=== PATIENT | female | born 1960 | race Caucasian/White ===

== ENCOUNTER 2024-07-03 14:35 | Emergency (ER) | payer BC, OTHER ==
--- OUTSIDE RECORDS SUMMARY | 2024-07-03 14:40 | XMS REPORT | Continuity of Care Document ---
Author Name Unknown Address [address] [facility] [place] [address] [facility] Address [address] [facility] [address] [place] [address] Care Team Providers Care Marking Clerk Name Role Phone CHELY VALDEZ Primary Care Physician Unavailab Chely Castellano MD Attending Clinician + [phone] CHELY VALDEZ Attending Clinician Unavailable Suresh Locke Attending Clinician [phone] Unknown, Attending Attending Clinician Unavailab SURESH Molina Attending Clinician Unavailab Chely Castellano MD Attending Clinician [phone] [facility] Attending Clinician Unavailable CLAYTON LOZOYA Attending Clinician Unavailable EbrahiClayton Obando Attending Clinician [phone] Unknown, Attending Attending Clinician Unavailab Breanne Arce Attending Clinician + [phone] TANISHA RHODES Attending Clinician Unavailab Tanisha Yip DO Attending Clinician [phone] BREANNE CHIN Attending Clinician Unavailable MELISSA HARMON Attending Clinician Unavaila ble Doctor Unassigned, [place] Attending Clinician U navailable Lab, Ang - Db Attending Clinician Unavailable EV LOWRY Attending Clinician Unavailable Ev Lowry MD Attending Clinician [phone] Melissa Harmon MDHEvelyn Attending Clinician + [phone], [facility] Attending Clinician Unavailable Annemarie Sewell Attending Clinician [phone] Team, [facility] Maintenance Attending Joyce strauss Unavailable KENNEDI THOMPSON Attending Clinician Shruti Kennedi Wade MD Attending Clinician Melissa Hoang MD Attending Clinician [phone] ANNEMARIE MCBRIDE Attending Clinician Unavailable MELISSA HOANG Attending Clinician Unavaila ble Lab, Adc Fam Pob I Attending Clinician Unavailab EV Pineda Admitting Clinician Unavailable Ev Lowry MD Admitting Clinician [phone] Payers Payer Name Policy Type Policy Number Effective Date Expirati on Date Source [facility] [id number] 2024 00:00:00 Problems Condition Name Condition Details Condition Category Status Onset Date Resolution Date Last Treatment Date Treating Clinician Comments Source Encounter for screening colonoscop y Encounter for screening colonoscop y Disease Active 05-25 00:00: 00 Overview: Formattin g of this note might be different from the original. Added automatic ally from request for surgery [id number] [facility] Allergic rhinitis Allergic rhinitis Disease Active 06-09 00:00: 00 [facility] Migraines Migraines Disease Active 11-05 00:00: 00 [facility] Overactive bladder Overactive bladder Disease Active 11-05 00:00: 00 [facility] Postmenopa usal HRT (hormone replacemen t therapy) Postmenopa usal HRT (hormone replacemen t therapy) Disease Active 11-05 00:00: 00 [facility] Colon polyps Colon polyps Disease Active [facility] Allergies, Adverse Reactions, Alerts Allergy Name Allergy Type Status Severity Reaction(s) Onset Date Inactive Date Treating Clinician Comments Source Codeine Propensi ty to adverse reaction s Active Other - See comments 11-05 00:00: 00 [facility] CODEINE DRUG INGREDI Active N/V 11-05 00:00: 00 [facility] Social History Social Habit Start Date Stop Date Quantity Comments Source ASSERTION Not [facility] Sexual orientation [facility] Alcoholic beverage intake 2023-10-07 00:00:00 2023-10-07 00:00:00 4 /d [facility] Alcohol intake 2023-02-23 00:00:00 2023-02-23 00:00:00 4 /d [facility] History of Social function 2022-07-08 00:00:00 2022-07-08 00:00:00 [facility] Exposure to SARS-CoV-2 (event) 2022-06-20 00:00:00 2022-06-30 15:38:[address] [facility] Tobacco use and exposure 2021-12-18 00:00:00 2021-12-18 00:00:00 Smokeless tobacco non-user [facility] Sex assigned at 1960 00:00:00 1960 00:00:00 [facility] Smoking Status Start Date Stop Date Source Never smoked tobacco [facility] Medications Ordered Medication Name Filled Medication Name Start Date Stop Date Current Medication? Ordering Clinician Indication Dosage Frequency Signature (SIG) Comments Components Source diclofenac 75 mg EC tablet 06-21 00:00: 00 Yes [id number] 75mg Take 1 tablet by mouth in the morning and 1 tablet in the evening. Take with meals. [facility] oxybutynin 10 mg 24 hr tablet 06-21 00:00: 00 Yes [id number] 10mg Take 1 tablet by mouth in the morning. [facility] mupirocin 2 % ointment 06-21 00:00: 00 Yes [id number] Apply to area(s) every 12 hours. [facility] CETIRIZINE 10 mg tablet 06-01 00:00: 00 Yes [id number] 10mg TAKE 1 TABLET BY MOUTH IN THE MORNING [facility] OXYBUTYNIN 10 mg 24 hr tablet 05-29 00:00: 00 06-21 00:00 :00 No [id number] TAKE 1 TABLET BY MOUTH ONCE DAILY IN THE MORNING - APPOINTMEN T REQUIRED FOR FUTURE REFILLS [facility] CETIRIZINE 10 mg tablet 1-10 00:00: 00 Yes [id number] 10mg TAKE 1 TABLET BY MOUTH IN THE MORNING [facility] OXYBUTYNIN 10 mg 24 hr tablet -10 00:00: 00 05-29 00:00 :00 No [id number] TAKE 1 TABLET BY MOUTH ONCE DAILY IN THE MORNING -APPOINTME NT REQUIRED FOR FUTURE REFILLS [facility] sumatriptan 100 mg tablet 2023-02 00:00: 00 Yes [id number] TAKE ONE TABLET BY MOUTH NEEDED FOR MIGraine, Max 1 dose per 24 hrs [facility] diclofenac 75 mg EC tablet 2023-02 00:00: 00 06-21 00:00 :00 No [id number] 75mg Take 1 tablet by mouth in the morning and 1 tablet in the evening. Take with meals. [facility] OXYBUTYNIN 10 mg 24 hr tablet 2023-02- 00:00: 00 03-03 00:00 :00 No [id number] TAKE 1 TABLET BY MOUTH ONCE DAILY IN THE MORNING . APPOINTMEN T REQUIRED FOR FUTURE REFILLS [facility] oxybutynin 10 mg 24 hr tablet 09-05 00:00: 00 Yes [id number] 10mg Take 1 tablet by mouth every morning. MUST BE SEEN FOR FURTHER REFILLS [facility] cetirizine (ALLERGY RELIEF, CETIRIZINE, ) 10 mg tablet 15 00:00: 00 03-03 00:00 :00 No [id number] 10mg Take 1 tablet by mouth in the morning. [facility] oxybutynin 10 mg 24 hr tablet 6-20 00:00: 00 09-05 00:00 :00 No [id number] 10mg Take 1 tablet by mouth every morning. MUST BE SEEN FOR FURTHER REFILLS [facility] oxybutynin 10 mg 24 hr tablet 5-31 00:00: 00 08-11 00:00 :00 No [id number] 10mg Take 1 tablet by mouth every morning. MUST BE SEEN FOR FURTHER REFILLS [facility] ALLERGY RELIEF, CETIRIZINE, 10 mg tablet 5-20 00:00: 00 09-05 00:00 :00 No [id number] Take 1 tablet by mouth once daily [facility] cephALEXin 500 mg capsule 0 4-10 00:00: 00 01-23 00:00 :00 No [id number] 500mg Take 1 capsule by mouth 4 (four) times daily. [facility] OXYBUTYNIN 10 mg 24 hr tablet 0 3-07 00:00: 00 Yes [id number] 10mg TAKE 1 TABLET BY MOUTH IN THE MORNING [facility] ALLERGY RELIEF, CETIRIZINE, 10 mg tablet 2-12 00:00: 00 07-11 00:00 :00 No [id number] Take 1 tablet by mouth once daily [facility] oxybutynin 10 mg 24 hr tablet 1-09 00:00: 00 Yes [id number] 10mg Take 1 tablet by mouth in the morning. MUST BE SEEN FOR FURTHER REFILLS! [facility] ibuprofen (IBU) tablet 600 mg 02-23 20:00: 00 02-23 20:21 :00 No 600mg 600 mg, Oral, ONCE, 1 dose, On Wed02/23/23 at 1400, SEVEN [facility] methocarbam oL (ROBAXIN) tablet 1,000 mg 02-23 20:00: 00 02-23 20:21 :00 No 1000mg 1,000 mg, Oral, ONCE, 1 dose, On Wed02/23/23 at 1400, SEVEN [facility] cyclobenzap rine 5 mg tablet 02-23 00:00: 00 Yes [id number] 5mg Take 1 tablet by mouth in the morning and 1 tablet at noon and 1 tablet in the evening. [facility] ALLERGY RELIEF, CETIRIZINE, 10 mg tablet 2022-02- 00:00: 00 04-05 00:00 :00 No [id number] Take 1 tablet by mouth once daily [facility] ALLERGY RELIEF, CETIRIZINE, 10 mg tablet - 00:00: 00 01-04 00:00 :00 No [id number] Take 1 tablet by mouth once daily [facility] semaglutide , weight loss, (WEGOVY) 0.25 mg/0.5 mL PnIj SC injection 08-14 00:00: 00 01-23 00:00 :00 No [id number] .25mg inject 0.25 mg under the skin weekly. [facility] water for irrigation irrigation solution 07-08 14:44: 00 07-08 15:34 :50 No PRN, Starting on Wed07/08/22 at 0944, Until Wed07/08/22 at 1034, Routine, Intra-op [facility] simethicone (GAS RELIEF (SIMETHICON E)) 40 mg/0.6 mL drops 07-08 14:44: 00 07-08 15:34 :50 No PRN, Starting on Wed07/08/22 at 0944, Until Wed07/08/22 at 1034, Routine, Intra-op [facility] lactated ringers IV infusion 1,000 mL 07-08 13:15: 00 07-08 13:14 :00 No 1000mL at 42 mL/hr, 1,000 mL, IV Infusion, ONCE, 1 dose, On Wed07/08/22 at 0815, Routine, DSU Pre-op [facility] estradiol (ESTRACE) 2 mg tablet 07-08 09:02: 55 07-08 00:00 :00 No 2mg Take 1 tablet by mouth in the morning. [facility] oxybutynin 10 mg 24 hr tablet 07-06 00:00: 00 03-02 00:00 :00 No [id number] 10mg Take 1 tablet by mouth in the morning. [facility] estradiol (ESTRACE) 2 mg tablet 06-30 15:37: 24 Yes 2mg Take 1 tablet by mouth in the morning. [facility] ezetimibe 10 mg tablet 4-12 00:00: 00 Yes [id number] 10mg Take 1 tablet by mouth in the morning. [facility] ALLERGY RELIEF, CETIRIZINE, 10 mg tablet 4-12 00:00: 00 09-03 00:00 :00 No [id number] Take 1 tablet by mouth once daily [facility] clobetasoL 0.05 % ointment 4-03 00:00: 00 Yes 1{appli cator} Apply 1 Applicator to area(s) as needed. [facility] cyclobenzap rine 5 mg tablet 3- 00:00: 00 07-08 00:00 :00 No [id number] 5mg Take 1 tablet by mouth at bedtime as needed for Muscle Spasms. [facility] ALLERGY RELIEF, CETIRIZINE, 10 mg tablet 1-10 00:00: 00 06-03 00:00 :00 No [id number] Take 1 tablet by mouth once daily [facility] estradiol (ESTRACE) 2 mg tablet 2021-02 0 13:25: 50 Yes 2mg Take 2 mg by mouth daily. [facility] oxybutynin 10 mg 24 hr tablet 2021-02 0-27 00:00: 00 07-06 00:00 :00 No [id number] 10mg Take 1 tablet by mouth in the morning. [facility] OXYBUTYNIN 10 mg 24 hr tablet 2021-02 0-03 00:00: 00 12-18 00:00 :00 No [id number] Take 1 tablet by mouth once daily [facility] CETIRIZINE 10 mg tablet 8-25 00:00: 00 03-03 00:00 :00 No [id number] Take 1 tablet by mouth once daily [facility] FLUTICASONE PROPIONATE 50 mcg/actuati on nasal spray 7-25 00:00: 00 Yes [id number] Use 2 spray(s) in each nostril once daily [facility] OXYBUTYNIN 10 mg 24 hr tablet 09-01 00:00: 00 11-24 00:00 :00 No [id number] Take 1 tablet by mouth once daily [facility] CETIRIZINE 10 mg tablet 09-01 00:00: 00 10-16 00:00 :00 No [id number] Take 1 tablet by mouth once daily [facility] estradiol (ESTRACE) 2 mg tablet 08-16 09:31: 27 Yes 2mg Take 2 mg by mouth daily. [facility] sumatriptan 100 mg tablet 08-16 00:00: 00 01-23 00:00 :00 No [id number] TAKE ONE TABLET BY MOUTH NEEDED FOR MIGraine, Max 1 dose per 24 hrs [facility] fluticasone propionate 50 mcg/actuati on nasal spray 08-16 00:00: 00 09-15 00:00 :00 No [id number] 2{spray } Use 2 Sprays in each nostril daily. [facility] oxybutynin 10 mg 24 hr tablet 08-16 00:00: 00 09-01 00:00 :00 No [id number] 10mg Take 1 tablet by mouth daily. [facility] cetirizine 10 mg tablet 08-16 00:00: 00 09-01 00:00 :00 No [id number] 10mg Take 1 tablet by mouth daily. [facility] Immunizations Ordered Immunization Name Filled Immunization Name Date Status Comments Source TD, NOS 2023-10-07 10:40:[address] [facility] Zoster Vaccine Recombinant 2023-10-07 10:40:[address] [facility] TD, NOS 2023-07-10 00:00:[address] [facility] Zoster Vaccine Recombinant 2023-07-10 00:00:[address] [facility] TD, NOS 2023-06-03 00:00:[address] [facility] Zoster Vaccine Recombinant 2023-06-03 00:00:[address] [facility] TD, NOS 2023-06-02 18:40:[address] [facility] Zoster Vaccine Recombinant 2023-06-02 18:40:[address] [facility] TD, NOS 2023-06-02 00:00:[address] [facility] Zoster Vaccine Recombinant 2023-06-02 00:00:[address] [facility] TD, NOS 2023-04-30 00:00:[address] [facility] Zoster Vaccine Recombinant 2023-04-30 00:00:[address] [facility] TD, NOS 2023-04-29 00:00:[address] [facility] Zoster Vaccine Recombinant 2023-04-29 00:00:[address] [facility] TD, NOS 2023-04-20 00:00:[address] [facility] Zoster Vaccine Recombinant 2023-04-20 00:00:[address] [facility] TD, NOS 2023-04-04 00:00:[address] [facility] Zoster Vaccine Recombinant 2023-04-04 00:00:[address] [facility] TD, NOS 2023-03-02 00:00:[address] [facility] Zoster Vaccine Recombinant 2023-03-02 00:00:[address] [facility] TD, NOS 2023-02-23 13:08:[address] [facility] Zoster Vaccine Recombinant 2023-02-23 13:08:[address] [facility] TD, NOS 2023-01-02 00:00:[address] [facility] Zoster Vaccine Recombinant 2023-01-02 00:00:[address] [facility] TD, NOS 2021-12-22 00:00:[address] [facility] Zoster Vaccine Recombinant 2021-12-22 00:00:[address] [facility] TD, NOS 2021-03-17 00:00:[address] [facility] Zoster Vaccine Recombinant 2021-03-17 00:00:[address] [facility] TD, NOS 2021-03-17 00:00:[address] [facility] Zoster Vaccine Recombinant 2021-03-17 00:00:[address] [facility] TD, NOS 2021-03-03 00:00:[address] [facility] Zoster Vaccine Recombinant 2021-03-03 00:00:[address] [facility] TD, NOS 2021-02-28 00:00:[address] [facility] Zoster Vaccine Recombinant 2021-02-28 00:00:[address] [facility] Zoster Vaccine Recombinant 2020-10-30 00:00:00 Completed Zoster Vaccine Recombinant 2020-10-30 00:00:[address] [facility] Zoster Vaccine Recombinant 2020-10-30 00:00:[address] [facility] Zoster Vaccine Recombinant 2020-10-30 00:00:[address] [facility] Zoster Vaccine Recombinant 2020-10-30 00:00:[address] [facility] Zoster Vaccine Recombinant 2020-10-30 00:00:[address] [facility] Zoster Vaccine Recombinant 2020-10-30 00:00:[address] [facility] Zoster Vaccine Recombinant 2020-10-30 00:00:[address] [facility] Zoster Vaccine Recombinant 2020-10-30 00:00:[address] [facility] Zoster Vaccine Recombinant 2020-10-30 00:00:[address] [facility] Zoster Vaccine Recombinant 2020-10-30 00:00:[address] [facility] Zoster Vaccine Recombinant 2020-10-30 00:00:[address] [facility] Zoster Vaccine Recombinant 2020-10-30 00:00:[address] [facility] Zoster Vaccine Recombinant 2020-10-30 00:00:[address] [facility] Zoster Vaccine Recombinant 2020-10-30 00:00:[address] [facility] Zoster Vaccine Recombinant 2020-10-30 00:00:[address] [facility] Zoster Vaccine Recombinant 2020-10-30 00:00:[address] [facility] Zoster Vaccine Recombinant 2020-10-30 00:00:[address] [facility] Zoster Vaccine Recombinant 2020-10-30 00:00:[address] [facility] Zoster Vaccine Recombinant 2020-10-30 00:00:[address] [facility] Zoster Vaccine Recombinant 2020-10-30 00:00:[address] [facility] Zoster Vaccine Recombinant 2020-10-30 00:00:[address] [facility] Zoster Vaccine Recombinant 2020-10-30 00:00:[address] [facility] Zoster Vaccine Recombinant 2020-10-30 00:00:[address] [facility] Zoster Vaccine Recombinant 2020-10-30 00:00:[address] [facility] Zoster Vaccine Recombinant 2020-08-28 00:00:[address] [facility] Zoster Vaccine Recombinant 2020-08-28 00:00:[address] [facility] Zoster Vaccine Recombinant 2020-08-28 00:00:[address] [facility] Zoster Vaccine Recombinant 2020-08-28 00:00:[address] [facility] Zoster Vaccine Recombinant 2020-08-28 00:00:[address] [facility] Zoster Vaccine Recombinant 2020-08-28 00:00:[address] [facility] Zoster Vaccine Recombinant 2020-08-28 00:00:[address] [facility] Zoster Vaccine Recombinant 2020-08-28 00:00:[address] [facility] Zoster Vaccine Recombinant 2020-08-28 00:00:[address] [facility] Zoster Vaccine Recombinant 2020-08-28 00:00:[address] [facility] Zoster Vaccine Recombinant 2020-08-28 00:00:[address] [facility] Zoster Vaccine Recombinant 2020-08-28 00:00:[address] [facility] Zoster Vaccine Recombinant 2020-08-28 00:00:[address] [facility] Zoster Vaccine Recombinant 2020-08-28 00:00:[address] [facility] Zoster Vaccine Recombinant 2020-08-28 00:00:[address] [facility] Zoster Vaccine Recombinant 2020-08-28 00:00:[address] [facility] Zoster Vaccine Recombinant 2020-08-28 00:00:[address] [facility] Zoster Vaccine Recombinant 2020-08-28 00:00:[address] [facility] Zoster Vaccine Recombinant 2020-08-28 00:00:[address] [facility] Zoster Vaccine Recombinant 2020-08-28 00:00:[address] [facility] Zoster Vaccine Recombinant 2020-08-28 00:00:[address] [facility] Zoster Vaccine Recombinant 2020-08-28 00:00:[address] [facility] Zoster Vaccine Recombinant 2020-08-28 00:00:[address] [facility] Zoster Vaccine Recombinant 2020-08-28 00:00:[address] [facility] TD, NOS 2020-08-19 00:00:[address] [facility] TD, NOS 2020-08-17 00:00:[address] [facility] Td 2012-02-23 00:00:[address] [facility] Td 2012-02-23 00:00:[address] [facility] Td 2012-02-23 00:00:[address] [facility] Td 2012-02-23 00:00:[address] [facility] Td 2012-02-23 00:00:[address] [facility] Td 2012-02-23 00:00:[address] [facility] Td 2012-02-23 00:00:[address] [facility] TD, NOS 2012-02-23 00:00:[address] [facility] TD, NOS 2012-02-23 00:00:[address] [facility] TD, NOS 2012-02-23 00:00:[address] [facility] TD, NOS 2012-02-23 00:00:[address] [facility] TD, NOS 2012-02-23 00:00:[address] [facility] TD, NOS 2012-02-23 00:00:[address] [facility] TD, NOS 2012-02-23 00:00:[address] [facility] TD, NOS 2012-02-23 00:00:[address] [facility] TD, NOS 2012-02-23 00:00:[address] [facility] TD, NOS 2012-02-23 00:00:[address] [facility] TD, NOS 2012-02-23 00:00:[address] [facility] TD, NOS 2012-02-23 00:00:[address] [facility] TD, NOS 2012-02-23 00:00:[address] [facility] TD, NOS 2012-02-23 00:00:[address] [facility] TD, NOS 2012-02-23 00:00:[address] [facility] TD, NOS 2012-02-23 00:00:[address] [facility] TD, NOS 2012-02-23 00:00:[address] [facility] TD, NOS 2012-02-23 00:00:[address] [facility] TD, NOS 2012-02-23 00:00:[address] [facility] TD, NOS 2012-02-23 00:00:[address] [facility] TD, NOS 2012-02-23 00:00:[address] [facility] TD, NOS 2012-02-23 00:00:[address] [facility] TD, NOS 2012-02-23 00:00:[address] [facility] TD, NOS 2012-02-23 00:00:[address] [facility] TD, NOS 2012-02-23 00:00:[address] [facility] Vital Signs Vital Name Observation Time Observation Value Comments S ource Systolic blood pressure 2024-06-21 18:17:00 135 mm[Hg] [facility] Diastolic blood pressure 2024-06-21 18:17:00 70 mm[Hg] [facility] Heart rate 2024-06-21 18:17:00 53 /min [facility] Body height 2024-06-21 18:17:00 162.6 cm [facility] Body weight 2024-06-21 18:17:00 79.788 kg [facility] BMI 2024-06-21 18:17:00 30.19 kg/m2 [facility] Oxygen saturation in Arterial blood by Pulse oximetry 2024-06-21 18:17:00 97 /min [facility] Systolic blood pressure 2024-01-24 18:50:00 135 mm[Hg] [facility] Diastolic blood pressure 2024-01-24 18:50:00 81 mm[Hg] [facility] Heart rate 2024-01-24 18:50:00 55 /min [facility] Body height 2024-01-24 18:50:00 162.6 cm [facility] Body weight 2024-01-24 18:50:00 78.2 kg [facility] BMI 2024-01-24 18:50:00 29.59 kg/m2 [facility] Oxygen saturation in Arterial blood by Pulse oximetry 2024-01-24 18:50:00 98 /min [facility] Systolic blood pressure 2023-10-07 15:57:00 130 mm[Hg] [facility] Diastolic blood pressure 2023-10-07 15:57:00 79 mm[Hg] [facility] Heart rate 2023-10-07 15:56:00 61 /min [facility] Body temperature 2023-10-07 15:56:[address] [facility] Respiratory rate 2023-10-07 15:56:00 14 /min [facility] Body height 2023-10-07 15:56:00 165.1 cm [facility] 2023-10-07 15:56:00 71.94 kg [facility] BMI 2023-10-07 15:56:00 26.39 kg/m2 [facility] Oxygen saturation in Arterial blood by Pulse oximetry 2023-10-07 15:56:00 96 /min [facility] Systolic blood pressure 2023-09-06 19:23:00 139 mm[Hg] [facility] Diastolic blood pressure 2023-09-06 19:23:00 76 mm[Hg] [facility] Heart rate 2023-09-06 19:23:00 55 /min [facility] Body height 2023-09-06 19:23:00 162.6 cm [facility] Body weight 2023-09-06 19:23:00 73.256 kg [facility] BMI 2023-09-06 19:23:00 27.72 kg/m2 [facility] Oxygen saturation in Arterial blood by Pulse oximetry 2023-09-06 19:23:00 98 /min [facility] Systolic blood pressure 2023-06-02 23:55:00 131 mm[Hg] [facility] Diastolic blood pressure 2023-06-02 23:55:00 88 mm[Hg] [facility] Heart rate 2023-06-02 23:54:00 74 /min [facility] Body temperature 2023-06-02 23:54:[address] [facility] Respiratory rate 2023-06-02 23:54:00 16 /min [facility] Body weight 2023-06-02 23:54:00 72.576 kg [facility] BMI 2023-06-02 23:54:00 27.46 kg/m2 [facility] Oxygen saturation in Arterial blood by Pulse oximetry 2023-06-02 23:54:00 100 /min [facility] Systolic blood pressure 2023-02-23 20:25:00 144 mm[Hg] [facility] Diastolic blood pressure 2023-02-23 20:25:00 78 mm[Hg] [facility] Heart rate 2023-02-23 20:25:00 79 /min [facility] Respiratory rate 2023-02-23 20:25:00 18 /min [facility] Oxygen saturation in Arterial blood by Pulse oximetry 2023-02-23 20:25:00 99 /min [facility] Body temperature 2023-02-23 19:07:[address] [facility] Body height 2023-02-23 19:07:00 162.6 cm [facility] Body weight 2023-02-23 19:07:00 72.122 kg [facility] BMI 2023-02-23 19:07:00 27.29 kg/m2 [facility] Systolic blood pressure 2022-08-14 20:32:00 128 mm[Hg] [facility] Diastolic blood pressure 2022-08-14 20:32:00 78 mm[Hg] [facility] Heart rate 2022-08-14 20:32:00 62 /min [facility] Body height 2022-08-14 20:32:00 162.6 cm [facility] Body weight 2022-08-14 20:32:00 81.194 kg [facility] BMI 2022-08-14 20:32:00 30.73 kg/m2 [facility] Oxygen saturation in Arterial blood by Pulse oximetry 2022-08-14 20:32:00 95 /min [facility] Oxygen saturation in Arterial blood by Pulse oximetry 2022-07-08 15:55:00 100 /min [facility] Systolic blood pressure 2022-07-08 15:52:00 136 mm[Hg] [facility] Diastolic blood pressure 2022-07-08 15:52:00 65 mm[Hg] [facility] Respiratory rate 2022-07-08 15:52:00 16 /min [facility] Heart rate 2022-07-08 15:35:00 66 /min [facility] Body temperature 2022-07-08 15:24:[address] [facility] Body height 2022-06-30 20:00:00 162.6 cm [facility] Body weight 2022-06-30 20:00:00 78.019 kg [facility] BMI 2022-06-30 20:00:00 29.52 kg/m2 [facility] Systolic blood pressure 2022-07-08 13:12:00 120 mm[Hg] [facility] Diastolic blood pressure 2022-07-08 13:12:00 64 mm[Hg] [facility] Heart rate 2022-07-08 13:12:00 56 /min [facility] Body temperature 2022-07-08 13:12:[address] [facility] Respiratory rate 2022-07-08 13:12:00 17 /min [facility] Oxygen saturation in Arterial blood by Pulse oximetry 2022-07-08 13:12:00 95 /min [facility] Body height 2022-06-30 20:00:00 162.6 cm [facility] Body weight 2022-06-30 20:00:00 78.019 kg [facility] BMI 2022-06-30 20:00:00 29.52 kg/m2 [facility] Systolic blood pressure 2022-04-24 17:12:00 127 mm[Hg] [facility] Diastolic blood pressure 2022-04-24 17:12:00 89 mm[Hg] [facility] Heart rate 2022-04-24 17:12:00 65 /min [facility] Body height 2022-04-24 17:06:00 162.6 cm [facility] Body weight 2022-04-24 17:06:00 79.697 kg [facility] BMI 2022-04-24 17:06:00 30.16 kg/m2 [facility] Oxygen saturation in Arterial blood by Pulse oximetry 2022-04-24 17:06:00 96 /min [facility] Systolic blood pressure 2022-04-22 19:57:00 135 mm[Hg] [facility] Diastolic blood pressure 2022-04-22 19:57:00 68 mm[Hg] [facility] Heart rate 2022-04-22 19:56:00 74 /min [facility] Body temperature 2022-04-22 19:56:[address] [facility] Respiratory rate 2022-04-22 19:56:00 18 /min [facility] Body height 2022-04-22 19:56:00 162.6 cm [facility] Body weight 2022-04-22 19:56:00 80.786 kg [facility] BMI 2022-04-22 19:56:00 30.57 kg/m2 [facility] Oxygen saturation in Arterial blood by Pulse oximetry 2022-04-22 19:56:00 98 /min [facility] Systolic blood pressure 2021-12-18 18:23:00 131 mm[Hg] [facility] Diastolic blood pressure 2021-12-18 18:23:00 75 mm[Hg] [facility] Heart rate 2021-12-18 18:23:00 62 /min [facility] Body temperature 2021-12-18 18:23:[address] [facility] Body height 2021-12-18 18:23:00 162.6 cm [facility] Body weight 2021-12-18 18:23:00 78.019 kg [facility] BMI 2021-12-18 18:23:00 29.52 kg/m2 [facility] Oxygen saturation in Arterial blood by Pulse oximetry 2021-12-18 18:23:00 97 /min [facility] Systolic blood pressure 2021-02-26 20:40:00 116 mm[Hg] [facility] Diastolic blood pressure 2021-02-26 20:40:00 75 mm[Hg] [facility] Heart rate 2021-02-26 20:35:00 69 /[facility] Body [facility] 2021-02-26 20:35:[address] [facility] Body height 2021-02-26 20:35:00 162.6 cm [facility] Body weight 2021-02-26 20:35:00 73.256 kg [facility] BMI 2021-02-26 20:35:00 27.72 kg/m2 [facility] Oxygen saturation in Arterial blood by Pulse oximetry 2021-02-26 20:35:00 96 /min [facility] Procedures Procedure Date / Time Performed Performing Clinician Source POCT URINALYSIS 2023-10-07 15:54:[address] [facility] CONSENT/REFUSAL FOR DIAGNOSIS AND TREATMENT 2023-02-23 18:59:04 Doctor Unassigned, [place] [facility] INSURANCE CORRESPONDENCE 2022-09-14 05:01:00 Doc josé Unassigned, [place] [facility] INSURANCE CORRESPONDENCE 2022-08-18 05:01:00 Doc josé Unassigned, [place] [facility] COLONOSCOPY 2022-07-08 14:27:00 Ev Lowry [facility] COLONOSCOPY (ENDO) 2022-07-08 12:44:[address] [facility] COLONOSCOPY (ENDO) 2022-07-08 12:44:[address] [facility] DAY SURGERY - ADC 2022-07-08 05:01:00 Doctor Shruti ssigned, [place] [facility] INSURANCE CORRESPONDENCE 2022-05-14 05:01:00 Marc kumar Unassigned, [place] [facility] HB ECG ROUTINE & RHYTHM STRIP 2022-04-24 17:09:[address] [facility] CONSENT/REFUSAL FOR DIAGNOSIS AND TREATMENT 2022-04-24 16:36:13 Doctor Unassigned, [place] [facility] ASSIGNMENT OF BENEFITS 2022-04-24 16:35:56 Docto r Unassigned, [place] [facility] VITAMIN B12, LEVEL 2021-02-26 21:22:[address] [facility] FOLATE 2021-02-26 21:22:00 Annemarie Mcbride [facility] THYROID STIMULATING HORMONE 2021-02-26 21:22:[address] [facility] COMP. METABOLIC PANEL (01144) 2021-02-26 21:22:[address] [facility] LIPID PANEL (79063)(TOTAL CHOLESTEROL, TRIGLYCERIDES, HDL) 2021-02-26 21:22:[address] [facility] CBC WITH DIFF 2021-02-26 21:22:00 Annemarie Mcbride [facility] GLYCOSYLATED HEMOGLOBIN (A1C) 2021-02-26 21:22:[address] [facility] VITAMIN D, 25-OH 2021-02-26 21:22:[address] [facility] Encounters Start Date/Time End Date/Time Encounter Type Admission Type Attending Clinicians Care Facility Care Department Encounter ID Source 2024-06-21 13:15:00 2024-06-21 13:30:00 [facility] 1.2.840.114 350.1.13.10 4.2.7.2.686 [id number] [facility] 2024-06-21 13:15:00 2024-06-21 13:15:00 Outpatient R CHELY VALDEZ [facility] [id number] [facility] 2024-05-28 00:00:00 2024-05-29 16:20:03 Refill Valdez, Chely [facility] 1.84.114 350.1.13.10 4.2.7.2.686 [id number] [facility] 2024-05-24 00:00:00 2024-05-24 07:58:20 Refill Chely Valdez [facility] 1.2840.114 350.1.13.10 4.2.7.2.686 [id number] [facility] 2024-04-19 00:00:00 2024-04-20 08:58:47 Refill [facility] 1.84.114 350.1.13.10 4.2.7.2.686 [id number] [id number] [facility] 2024-03-02 00:00:00 2024-03-03 08:01:56 Refill Chely Valdez [facility] 1.84.114 350.1.13.10 4.2.7.2.686 [id number] [facility] 2024-01-24 12:45:00 2024-01-24 13:00:00 Office Visit Che[facility] Valdez [facility] 1.284.114 350.1.13.10 4.2.7.2.686 [id number] [facility] 2024-01-24 12:45:00 2024-01-24 12:45:00 Outpatient R JOSÉ MIGUEL CHELY [facility] [id number] [facility] 2023-10-07 10:40:00 2023-10-07 11:00:00 Urgent Care Suresh Ramirez, Attending [facility] [place] 1.284.114 350.1.13.10 4.2.7.2.686 [id number] [facility] 2023-10-07 10:40:00 2023-10-07 10:40:00 Outpatient R SURESH RAMIREZ [facility] [id number] [facility] 2023-09-06 14:30:00 2023-09-06 14:45:00 [facility] 1.840.114 350.1.13.10 4.2.7.2.686 [id number] [facility] 2023-09-06 14:30:00 2023-09-06 14:30:00 Outpatient R JOSÉ MIGUEL [facility] [id number] [facility] 2023-08-16 12:30:00 2023-08-16 12:30:00 Outpatient R CHELY VALDEZ [facility] [id number] [facility] 2023-08-12 00:00:00 2023-08-12 00:00:00 Telephone [facility] 1.84.114 350.1.13.10 4.2.7.2.686 [id number] [facility] 2023-07-10 00:00:00 2023-07-12 09:09:00 Refill José Miguel [facility] [place] 1.840.114 350.1.13.10 4.2.7.2.686 [id number] [facility] 2023-06-03 00:00:00 2023-06-03 00:00:00 Telephone Provider, Sekou [facility] 1.840.114 350.1.13.10 4.2.7.2.686 [id number] [facility] 2023-06-02 18:40:00 2023-06-02 19:11:35 Outpatient R CLAYTON LOZOYA [facility] [id number] [facility] 2023-06-02 18:40:00 2023-06-02 19:11:35 Urgent Care Clayton Lozoya Unknown, Attending [facility] 1.2.840.114 350.1.13.10 4.2.7.2.686 [id number] [facility] 2023-06-02 00:00:00 2023-06-02 00:00:00 Telephone Joao Lozoyawilma [facility] [place] 1.2.840.114 350.1.13.10 4.2.7.2.686 [id number] [facility] 2023-04-30 00:00:00 2023-04-30 00:00:00 Telephone Breanne Chin [facility] [place] 1..840.114 350.1.13.10 4.2.7.2.686 [id number] [facility] 2023-04-29 00:00:00 2023-04-29 00:00:00 Refill Chely Valdez [facility] [place] 1.2840.114 350.1.13.10 4.2.7.2.686 [id number] [facility] 2023-04-20 00:00:00 2023-04-20 00:00:00 [facility] [place] 1.2.840.114 350.1.13.10 4.2.7.2.686 [id number] [facility] 2023-04-04 00:00:00 2023-04-04 00:00:00 Refill [facility] 1.840.114 350.1.13.10 4.2.7.2.686 [id number] [facility] 2023-03-02 00:00:00 2023-03-02 00:00:00 Refill [facility] 1.84.114 350.1.13.10 4.2.7.2.686 [id number] [facility] 2023-02-23 13:08:00 2023-02-23 14:26:00 Emergency X TANISHA RHODES [facility] [id number] [facility] 2023-02-23 13:08:00 2023-02-23 14:26:00 Emergency Tanisha [facility] 1.840.114 350.1.13.10 4.2.7.2.686 [id number] [facility] 2023-01-02 00:00:00 2023-01-02 00:00:00 Refill [facility] 1.284.114 350.1.13.10 4.2.7.2.686 [id number] [facility] 2022-09-22 15:30:00 2022-09-22 15:30:00 Outpatient BREANNE WILLIS [facility] [id number] [facility] 2022-09-14 00:00:00 2022-09-14 00:00:00 Orders Only Doctor Unassigned, [place] [facility] 1.2840.114 350.1.13.10 4.2.7.2.686 [id number] [facility] 2022-09-07 00:00:00 2022-09-07 00:00:00 Refill José Miguel [facility] [place] 1.2.840.114 350.1.13.10 4.2.7.2.686 [id number] [facility] 2022-09-05 00:00:00 2022-09-05 00:00:00 Refill Chely Valdez [facility] [place]?[facility] 1.2.840.114 350.1.13.10 4.2.7.2.686 [id number] [facility] 2022-09-03 00:00:00 2022-09-03 00:00:00 Refill José Miguel [facility] [place] 1.2840.114 350.1.13.10 4.2.7.2.686 [id number] [id number] [facility] 2022-08-18 00:00:00 2022-08-18 00:00:00 Telephone GiuseppeDaianaFormerly [facility] [place]?[facility] 1.2840.114 350.1.13.10 4.2.7.2.686 [id number] [facility] 2022-08-18 00:00:00 2022-08-18 00:00:00 Orders Only Doctor Unassigned, [place] [facility] 1.2.840.114 350.1.13.10 4.2.7.2.686 [id number] [facility] 2022-08-14 16:15:00 2022-08-14 16:27:04 Painter And Decorator Visit Lab, Sekou WoodardDaiana dardenFormerly [facility] [place]?[facility] 1.2840.114 350.1.13.10 4.2.7.2.686 [id number] [facility] 2022-08-14 15:30:00 2022-08-14 16:16:12 Outpatient R BREANNE CHIN [facility] [id number] [facility] 2022-08-14 15:30:00 2022-08-14 16:16:12 Office Visit Daiana ChinFormerly [facility] [place] 1.2.840.114 350.1.13.10 4.2.7.2.686 [id number] [id number] [facility] 2022-08-13 00:00:00 2022-08-13 00:00:00 Patient Secure Msg Doctor Unassigned, [place] [facility] 1.284.114 350.1.13.10 4.2.7.2.686 [id number] [facility] 2022-07-08 08:06:00 2022-07-08 11:50:00 Outpatient R EV LOWRY [facility] [id number] [facility] 2022-07-08 08:06:00 2022-07-08 11:50:00 Hospital Encounter Essence Ev [facility] 1.284.114 350.1.13.10 4.2.7.2.686 [id number] [facility] 2022-07-08 08:50:00 2022-07-08 09:55:00 Surgery Essence Ev [facility] 1.2.840.114 350.1.13.10 4.2.7.2.686 [id number] [facility] 2022-07-08 00:00:00 2022-07-08 00:00:00 Orders Only Doctor Unassigned, [place] [facility] 1.2.840.114 350.1.13.10 4.2.7.2.686 [id number] [facility] 2022 00:00:00 2022 00:00:00 Telephone Chely Valdez [facility] [place] 1.2.840.114 350.1.13.10 4.2.7.2.686 [id number] [facility] 2022-06-23 00:00:00 2022-06-23 00:00:00 Patient Secure MsMelissa Casas KEvelynHEvelyn [facility] 1.84.114 350.1.13.10 4.2.7.2.686 [id number] [facility] 2022-06-03 00:00:00 2022-06-03 00:00:00 Telephone Melissa Harmon [facility] 1.840.114 350.1.13.10 4.2.7.2.686 [id number] [facility] 2022-06-01 10:00:00 2022-06-01 23:59:00 Outpatient R MELISSA HARMON [facility] [id number] [facility] 2022-06-01 11:30:00 2022-06-01 11:30:00 Painter And Decorator Visit 2, Adc Lab Melissa HarmonHEvelyn [facility] 1..840.114 350.1.13.10 4.2.7.2.686 [id number] [facility] 2022-06-01 00:00:00 2022-06-01 00:00:00 Refill [facility] 1.2.840.114 350.1.13.10 4.2.7.2.686 [id number] [facility] 2022-05-19 00:00:00 2022-05-19 00:00:00 Patient Secure Msg Chely [facility] 1.2840.114 350.1.13.10 4.2.7.2.686 [id number] [facility] 2022-05-14 00:00:00 2022-05-14 00:00:00 Orders Only Doctor Unassigned, [place] [facility] 1.2.840.114 350.1.13.10 4.2.7.2.686 [id number] [facility] 2022-05-14 00:00:00 2022-05-14 00:00:00 Telephone Team, [facility] 1.2840.114 350.1.13.10 4.2.7.2.686 [id number] [facility] 2022-04-27 00:00:00 2022-04-27 00:00:00 Telephone Melissa Harmon [facility] 1.2840.114 350.1.13.10 4.2.7.2.686 [id number] [facility] 2022-04-24 10:30:00 2022-04-24 11:41:49 Outpatient R MELISSA HARMON [facility] [id number] [facility] 2022-04-24 10:30:00 2022-04-24 11:41:49 Office Visit Melissa Harmon [facility] 1.2840.114 350.1.13.10 4.2.7.2.686 [id number] [facility] 2022-04-24 00:00:00 2022-04-24 00:00:00 Orders Only Doctor Unassigned, [place] [facility] 1.2.840.114 350.1.13.10 4.2.7.2.686 [id number] [facility] 2022-04-22 13:45:00 2022-04-22 14:18:14 Outpatient R KENNEDI THOMPSON [facility] [id number] [facility] 2022-04-22 13:45:00 2022-04-22 14:18:14 Office Visit Kennedi Thompson [facility] [place] 1.840114 350.1.13.10 4.2.7.2.686 [id number] [facility] 2022-02-26 00:00:00 2022-02-26 00:00:00 Refill Annemarie Mcbride A [facility] [place] 1.84114 350.1.13.10 4.2.7.2.686 [id number] [facility] 2021-12-22 00:00:00 2021-12-22 00:00:00 Patient Secure Msg Doctor Unassigned, [place] [facility] 1.114 350.1.13.10 4.2.7.2.686 [id number] [facility] 2021-12-18 13:15:00 2021-12-18 13:30:00 Office Visit Chely Valdez [facility] [place] 1.84114 350.1.13.10 4.2.7.2.686 [id number] [facility] 2021-12-18 13:15:00 2021-12-18 13:15:00 Outpatient R CHELY VALDEZ [facility] [id number] [facility] 2021-11-24 00:00:00 2021-11-24 00:00:00 Refill Annemarie Mcbride A [facility] [place] MED[facility] OFFICE BUILD[facility] 1.284.114 350.1.13.10 4.2.7.2.686 [id number] [facility] 2021-10-15 00:00:00 2021-10-15 00:00:00 Refill Montmorency, Madiediful A [facility] [place]?[facility] MEDICAL OFFICE BUILDING 1.2840.114 350.1.13.10 4.2.7.2.686 [id number] [facility] 2021-09-11 00:00:00 2021-09-11 00:00:00 Refill Viktor, Madiediful A [facility] [place]?[facility] MEDICAL OFFICE BUILDING 1.2840.114 350.1.13.10 4.2.7.2.686 [id number] [facility] 2021-08-30 00:00:00 2021-08-30 00:00:00 Refill Montmorency, Madiediful A [facility] [place]?[facility] MEDICAL OFFICE BUILDING 1.2840.114 350.1.13.10 4.2.7.2.686 [id number] [facility] 2021-03-17 00:00:00 2021-03-17 00:00:00 Patient Secure Msg Betina Hoangful [facility] OFFICE BUILDING 1.840.114 350.1.13.10 4.2.7.2.686 [id number] [id number] [facility] 2021-03-17 00:00:00 2021-03-17 00:00:00 Patient Secure Msg Josh Mcbridelie [facility] OFFICE BUILDING 1.2840.114 350.1.13.10 4.2.7.2.686 [id number] [id number] [facility] 2021-03-03 00:00:00 2021-03-03 00:00:00 Telephone Annemarie Mcbride [facility] OFFICE BUILDING ONE 1.2.840.114 350.1.13.10 4.2.7.2.686 [id number] [facility] 2021-03-03 00:00:00 2021-03-03 00:00:00 Patient Secure Msg Doctor Unassigned, [place] [facility] [place]?[facility] OFFICE BUILDING 1.0.114 350.1.13.10 4.2.7.2.686 [id number] [facility] 2021-02-28 00:00:00 2021-02-28 00:00:00 Patient Secure Msg Doctor Unassigned, [place] [facility] 1.0.114 350.1.13.10 4.2.7.2.686 [id number] [facility] 2021-02-26 15:31:52 2021-02-26 23:59:00 Outpatient R ANNEMARIE MCBRIDE [facility] [id number] [facility] 2021-02-26 15:31:52 2021-02-26 23:59:00 Hospital Encounter Annemarie Mcbride [place] [facility] OFFICE BUILDING 1..114 350.1.13.10 4.2.7.2.686 [id number] [facility] 2021-02-26 15:15:00 2021-02-26 15:30:00 Painter And Decorator Visit Lab, Ang - Db Annemarie Mcbride [place] [facility] MEDICAL OFFICE BUILDING 1..114 350.1.13.10 4.2.7.2.686 [id number] [facility] 2021-02-26 14:30:00 2021-02-26 15:13:44 Office Visit Annemarie Mcbride [place] [facility] OFFICE BUILDING 1.0.114 350.1.13.10 4.2.7.2.686 [id number] [facility] 2021-02-26 14:30:00 2021-02-26 15:13:44 Outpatient R ANNEMARIE MCBRIDE [facility] [id number] [facility] 2020-08-30 13:13:36 2020-08-30 13:28:36 Painter And Decorator Visit 2, Adc Lab Melissa Hoang [facility] Building 1.114 350.1.13.10 4.2.7.2.686 [id number] [facility] 2020-08-30 13:15:00 2020-08-30 13:15:00 Outpatient R VIKTOR MADIEBERNARD [facility] [id number] [facility] 2020-08-19 00:00:00 2020-08-19 00:00:00 Patient Secure Msg Doctor Unassigned, [place] [facility] .114 350.1.13.10 4.2.7.2.686 [id number] [facility] 2020-08-18 00:00:00 2020-08-18 00:00:00 Case Management Viktor Betinabernard [facility] Office Building One 114 350.1.13.10 4.2.7.2.686 [id number] [facility] 2020-08-17 00:00:00 2020-08-17 00:00:00 Patient Secure Msg Doctor Unassigned, [place] [facility] ..114 350.1.13.10 4.2.7.2.686 [id number] [facility] 2020-08-16 10:48:37 2020-08-16 11:08:37 Painter And Decorator Visit Lab, Adc Fam Pob I Melissa Hoang [facility] Office Building One .2.840.114 350.1.13.10 4.2.7.2.686 [id number] [facility] 2020-08-16 09:24:09 2020-08-16 10:53:51 Office Visit Betina Hoangbernard [facility] Office Building One 1.0.114 350.1.13.10 4.2.7.2.686 [id number] [facility] 2020-08-16 09:30:00 2020-08-16 09:30:00 Outpatient R VIKTORMADIE MEADOWSVIKTOR [facility] [id number] [facility] 2020-08-16 00:00:00 2020-08-16 00:00:00 Telephone MontmorencyMadie meadowsjuan diegobernard Macedo [facility] Office Building One 1.0.114 350.1.13.10 4.2.7.2.686 [id number] [facility] 2020-08-16 00:00:00 2020-08-16 00:00:00 Orders Only Doctor Unassigned, [place] [facility] 1.0.114 350.1.13.10 4.2.7.2.686 [id number] [facility] 2020-07-12 00:00:00 2020-07-12 00:00:00 Refill Madie Hoangviktor [facility] Office Building One 1..114 350.1.13.10 4.2.7.2.686 [id number] [facility] 2019-05-18 09:03:47 2019-05-18 15:17:06 Telemedici ne Visit Melissa Hoang [facility] Office Building One 1.0.114 350.1.13.10 4.2.7.2.686 [id number] [facility] 2019-05-18 13:00:00 2019-05-18 13:00:00 Outpatient R MELISSA HOANG [facility] [id number] [facility] 2019-05-18 00:00:00 2019-05-18 00:00:00 Telephone Melissa Hoang [facility] Office Building One 1.2840.114 350.1.13.10 4.2.7.2.686 [id number] [facility] 2019-05-16 00:00:00 2019-05-16 00:00:00 Telephone Melissa Hoang [facility] Office Building One 1.840.114 350.1.13.10 4.2.7.2.686 [id number] [facility] 2019-05-15 15:00:00 2019-05-15 15:15:00 Telemedici ne Visit Melissa Hoang [facility] Office Building One 1.2840.114 350.1.13.10 4.2.7.2.686 [id number] [facility] 2019-05-15 15:00:00 2019-05-15 15:00:00 Outpatient R MELISSA HOANG [facility] [id number] [facility] 2019-05-14 00:00:00 2019-05-14 00:00:00 Refill Melissa Hoang [facility] Office Building One 1.840.114 350.1.13.10 4.2.7.2.686 [id number] [facility] Results Test Description Test Time Test Comments Results Result Co mments Source [facility] 10:21:21* Test Item Value Reference Range Interpretation Comme nts FOLATE SER (test code = 5515840262) >20.0 3.0-20.0 H Lab Interpretation (test cod e = 74614-8) Abnormal [facility], [id number] 10:03:01* Test Item Value Reference Range Interpretation Comme nts VIT D 25OH (test code = 78299-6) 24 ng/mL 25-80 L FISH (test code = IFSH) Deficiency: <20 ng/mLInsufficiency: 20-24 ng/mLOptimal: 25-80 ng/mL Lab Interpretation (test code = 54717-3) Abnormal [facility] B12, [id number] 09:48:19* Test Item Value Reference Range Interpretation Comme nts VIT B12 (test code = 2651466468) 337 pg/mL 240-930 FISH (test code = FISH) Biotin has been reported to cause a positive bias, interpret results relative to patient's use of biotin. Lab Interpretation (test code = 18628-4) Normal [facility] STIMULATING [id number] 05:02:17 * Test Item Value Reference Range Interpretation Comme nts TSH (test code = 2344304279) See_Comment [[employer]] The system which generated this result transmitted reference range: 0.45 - 4.70 mIU/L. The reference range was not used to interpret this result as normal/abnormal. Lab Interpretation (test code = 52324-3) Normal [facility]kin[facility]IP[facility] PANEL (03366)(TOTAL CHOLESTEROL, TRIGLYCERIDES, HDL)2021-02-27 04:33:13* Test Item Value Reference Range Interpretation Comme nts CHOL (test code = 7381010492) 177 mg/dL 120-200 HDL (test code = 2398607033) 67 mg/dL >50 HDLC RATIO (test code = 6322433623) See_Comment [Automated [employer]] The system which generated this result transmitted reference range: <=4.5. The reference range was not used to interpret this result as normal/abnormal. TRIG (test code = 2315920771) 147 mg/dL 30-170 LDL CHOL (test code = 32378-5) 81 mg/dL See_Comment [Automated [employer]] The system which generated this result transmitted reference range: <=160. The reference range was not used to interpret this result as normal/abnormal. VLDL (test code = 8877901760) 29 mg/dL 5-60 Lab Interpretation (test code = 76497-1) Normal [facility]. METABOLIC PANEL (07553)2021-02-27 04:32:53* Test Item Value Reference Range Interpretation Comme nts NA (test code = 5095003863) 137 mmol/L 135-145 K (test code = 0712544204) 4.1 mmol/L 3.5-5.0 CL (test code = 7556835941) 104 mmol/L 98-108 CO2 TOTAL (test code = 2322345775) 27 mmol/L 23-31 AGAP (test code = 9141514259) 2-16 BUN (test code = 9883107217) 9 mg/dL 7-23 GLUCOSE (test code = 4499905612) 95 mg/dL 70-110 CREATININE (test code = 4014563542) 0.57 mg/dL 0.50-1.04 TOTAL BILI (test code = 2843660542) 0.9 mg/dL 0.1-1.1 CALCIUM (test code = 7471520223) 9.1 mg/dL 8.6-10.6 T PROTEIN (test code = 9778347094) 7.2 g/dL 6.3-8.2 ALBUMIN (test code = 8809335484) 4.3 g/dL 3.5-5.0 ALK PHOS (test code = 7299889416) 114 U/L 34-122 ALTv (test code = 1742-6) 28 U/L 5-35 AST(SGOT) (test code = 8811568424) 35 U/L 13-40 eGFR (test code = 7008526446) mL/min/1.73m2 FISH (test code = FISH) Association of Glomerular Filtration Rate (GFR) and Staging of Kidney Disease* + + +- +| GFR (mL/min/1.73 m2) ?| With Kidney Damage ?| ?Without Kidney Damage+ ------+ ----+ ------+| ?>90 ?| ?Stage one ?| ? Normal ?+ -+ + -+| ?60-89 ?| ?Stage two ?| ? Decreased GFR ? + + +- +| ?30-59 ?| ?Stage three ?| ? Stage three ? + + +- +| ?15-29 ?| ?Stage four ? | ? Stage four ?+ -+ + -+| ?<15 (or dialysis) ? ?| ?Stage five ? | ? Stage five ?+ -+ + -+ *Each stage assumes the associated GFR level has been in effect for at least three months. ?Stages 1 to 5, with or without kidney disease, indicate chronic kidney disease. Notes: Determination of stages one and two (with eGFR >59mL/min/1.73 m2) requires estimation of kidney damage for at least three months as defined by structural or functional abnormalities of the kidney, manifested by either:Pathological abnormalities or Markers of kidney damage (including abnormalities in the composition of the blood or urine or abnormalities in imaging tests). [facility]YCOSYLATED HEMOGLOBIN (A1C)2021-02-27 04:29:36* Test Item Value Reference Range Interpretation Comme nts HGB A1C (test code = 4548-4) 5.2 % 4.0-5.7 FISH (test code = FISH) Reference RangesNormal: <5.7%Prediabetes: 5.7 - 6.4%Diabetes: > 6.5% Lab Interpretation (test code = 35633-3) Normal [facility] WITH [id number] 04:22:32* Test Item Value Reference Range Interpretation Comme nts WBC (test code = 6690-2) See_Comment [[employer]] The system which generated this result transmitted reference range: 4.30 - 11.10 10*3/?L. The reference range was not used to interpret this result as normal/abnormal. RBC (test code = 789-8) See_Comment [[employer]] The system which generated this result transmitted reference range: 3.93 - 5.25 10*6/?L. The reference range was not used to interpret this result as normal/abnormal. HGB (test code = 718-7) 12.9 g/dL 11.6-15.0 HCT (test code = 4544-3) 39.3 % 35.7-45.2 MCV (test code = 787-2) 95.6 fL 80.6-95.5 H MCH (test code = 785-6) 31.4 pg 25.9-32.8 MCHC (test code = 786-4) 32.8 g/dL 31.6-35.1 RDW-SD (test code = 10928-5) 41.3 fL 39.0-49.9 RDW-CV (test code = 788-0) 11.9 % 12.0-15.5 L PLT (test code = 777-3) See_Comment [Automated messa ge] The system which generated this result transmitted reference range: 166 - 358 10*3/?L. The reference range was not used to interpret this result as normal/abnormal. MPV (test code = 16965-0) 11.3 fL 9.5-12.9 NRBC/100 WBC (test code = 5441550347) See_Comment [Automated Note ssage] The system which generated this result transmitted reference range: 0.0 - 10.0 /100 WBCs. The reference range was not used to interpret this result as normal/abnormal. NRBC x10^3 (test code = 4524039146) <0.01 See_Comment [Automated messa ge] The system which generated this result transmitted reference range: 10*3/?L. The reference range was not used to interpret this result as normal/abnormal. GRAN MAT (NEUT) % (test code = 770-8) 56.7 % IMM GRAN % (test code = 3652359006) 0.40 % LYMPH % (test code = 736-9) 35.1 % MONO % (test code = 5905-5) 4.8 % EOS % (test code = 713-8) 1.8 % BASO % (test code = 706-2) 1.2 % GRAN MAT x10^3(ANC) (test code = 2321094416) 5.13 10*3/uL 1.88-7.09 IMM GRAN x10^3 (test code = 1641987798) 0.04 10*3/uL 0.00-0.06 LYMPH x10^3 (test code = 731-0) 3.18 10*3/uL 1.32-3.29 MONO x10^3 (test code = 742-7) 0.43 10*3/uL 0.33-0.92 EOS x10^3 (test code = 711-2) 0.16 10*3/uL 0.03-0.39 BASO x10^3 (test code = 704-7) 0.11 10*3/uL 0.01-0.07 H Lab Interpretation (test code = 97285-1) Abnormal [facility] Notes Date/Time Note Provider Source 2024-05-29 10:26:14 Pt called to follow up on refill request. Pt states that at last appointment Dr. Valdez told her that he was approving all of her medications for 6 months. She is requesting to speak with a nurse to confirm that she is needing an appointment for further refills. Please advise. OXYBUTYNIN 10 mg 24 hr tablet Morena Keene [facility] 2024-03-03 08:00:36 Last Refilled: OXYBUTYNIN 10 mg 24 hr tablet 45 tablet 0 01/18/2024 -- No Sig: TAKE 1 TABLET BY MOUTH ONCE DAILY IN THE MORNING . 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 Sent to pharmacy as: cetirizine 10 mg tablet (Allergy Relief (cetirizine)) Class: eRX Route: Oral Order: [id number] Date/Time Signed: 09/06/2023 14:35 E-Prescribing Status: Receipt confirmed by pharmacy (09/06/2023 2:35 PM CDT) Recent Visits Date Type Provider Dept 01/24/24 Office Visit Chely Valdez MD [facility] 09/06/23 Office Visit Chely Valdez MD [facility] Showing recent visits within past 540 days with a meds authorizing provider and meeting all other requirements Future Appointments No visits were found meeting these conditions. Showing future appointments within next 150 days with a meds authorizing provider and meeting all other requirements STO Lr [facility] 2023-08-12 13:30:17 Recent Visits Date Type Provider Dept 08/14/22 Office Visit Breanne Chin FNP [facility] 04/22/22 Office Visit Kennedi Thompson MD [facility] Showing recent visits within past 540 days with a meds authorizing provider and meeting all other requirements Future Appointments Date Type Provider Dept 09/06/23 Appointment Chely Valdez MD [facility] Showing future appointments within next 150 days with a meds authorizing provider and meeting all other requirements Last refill was Disp Refills Start End TRAN oxybutynin 10 mg 24 hr tablet 45 tablet 0 07/23/2023 -- No Sig: Take 1 tablet by mouth every morning. MUST BE SEEN FOR FURTHER REFILLS Sent to pharmacy as: oxyBUTYnin chloride ER 10 mg tablet,extended release 24 hr (DITROPAN-XL) Jonna Regan MA [facility] 2023-08-12 09:29:09 Copied from [facility] #[id number]. Topic: Clinical - Order >> Aug 12, 2023 9:27 AM Patient Retouching Operator wrote: Ted Cade is a 63 year old female and is calling for a refill of oxybutynin 10 mg 24 hr tablet. She states she ran out of this medication on 08-10-23. Pt had to reschedule her follow up appt with her PCP due to her daughter having a baby. Pt is asking for a refill before her next follow up appt. Please advise. 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 Showing future appointments within next 150 days with a meds authorizing provider and meeting all other requirements [facility] 2023-06-04 09:55:51 I called and left message to the patient to call us back. 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 Please advise. Gloria Valenzuela RN [facility] 2023-06-03 12:57:30 Ted Cade is a 62 year old female and is calling stating the [facility] pharmacy was telling her to ask for a z joann to go with the cephALEXin medication. Please advise. [facility] [address] [place] [id number] Jolie Ambrocio [facility] 2023-06-02 19:13:13 Medication sent. Pt notified. Carri Chaudhry RN [facility] 2023-06-02 19:05:39 Ted Cade is a 62 year old female Is wanting to resend the prescription cephALEXin [address] [facility] in [facility] [address] [place] [id number] Diego Khan [facility] 2023-06-02 18:40:00 Addended by: CLAYTON ROMERO on: 06/02/2023 07:11 PM Modules accepted: Orders [facility] 2023-04-29 08:35:41 Last Refilled: oxybutynin 10 mg 24 hr tablet 30 tablet 0 03/02/2023 -- No Sig: Take 1 tablet by mouth in the morning. MUST BE SEEN FOR FURTHER REFILLS! Sent to pharmacy as: oxyBUTYnin chloride ER 10 mg tablet,extended release 24 hr (DITROPAN-XL) Class: eRX Route: Oral Order: [id number] Date/Time Signed: 03/02/2023 09:05 E-Prescribing Status: Receipt confirmed by pharmacy (03/02/2023 9:05 AM FIXTURE DESIGNER) Recent Visits Date Type Provider Dept 08/14/22 Office Visit Breanne Chin FNP [facility] 04/22/22 Office Visit Kennedi Thompson MD [facility] 12/18/21 Office Visit Chely Valdez MD [facility] Showing recent visits within past 540 days with a meds authorizing provider and meeting all other requirements Future Appointments No visits were found meeting these conditions. Showing future appointments within next 150 days with a meds authorizing provider and meeting all other requirements URE DESIGNER Cecilia Lr [facility] 2023-03-02 08:59:52 Images from the original note were not included. Will refill one month, will need appointment for additional refills Name from pharmacy: Oxybutynin Chloride ER 10 MG Oral Tablet Extended Release 24 Hour Will file in chart as: OXYBUTYNIN 10 mg 24 hr tablet Sig: Take 1 tablet by mouth in the morning. Original sig: TAKE 1 TABLET BY MOUTH IN THE MORNING Disp: 90 tablet Refills: 0 Start: 03/02/2023 Class: eRX For: OAB (overactive bladder) Last ordered: 7 months ago (2022) by Chely Valdez MD Last refill: 11/27/2022 Rx #: [id number] Urology: Overactive Bladder Qosfih2803/02/2023 06:20 AM Protocol Details Valid encounter within last 12 months Overactive Bladder is on problem list To be filled at: [facility] [address] [place] [address] Recent Visits Date Type Provider Dept 08/14/22 Office Visit Breanne Chin FNP [facility] 04/22/22 Office Visit Kennedi Thompson MD [facility] 12/18/21 Office Visit Chely Valdez MD [facility] Showing recent visits within past 540 days with a meds authorizing provider and meeting all other requirements Future Appointments No visits were found meeting these conditions. Showing future appointments within next 150 days with a meds authorizing provider and meeting all other requirements 03/02/2023 - Rx Request: Ut, Erx Ss Refill (Newest Message First) View All Conversations on this Encounter March 02, 2023 EU 03/02/23 6:20 AM [facility], Erx Ss Refill routed this conversation to Sekou Kidd Med Nurse EU 03/02/23 6:20 AM [facility], Erx Ss Refill pended an order This encounter is not signed. The conversation may still be ongoing. URE DESIGNER [facility] 2023-02-23 14:25:34 Pt given printed and verbal discharge instructions regarding back pain, encouraged hydration, Prescriptions provided Pt verbalized understanding of instructions, pt awake alert oriented, resp reg unlabored, skin w/d, color appropriate for race, moves all ext well,pt encouraged to follow up with pcp Advised to seek medical attention for new/prolonged/worsening of symptoms, Symptoms remains the same. No adverse reaction to meds given in ER noted upon discharge Awake, alert oriented, resp reg unlabored, skin w/d, pt leaving amb with steady gait, in no apparent distress, STO Falk RN [facility] 2023-02-23 13:05:40 CC: patient presents to the ER with complaints of back pain that is located at the upper shoulder blade area with tingling to the left arm, states symptoms began around 0730 this morning. PMHx: see history Awake, alert, oriented, resp reg unlabored, skin warm and dry, color appropriate for race, moves all ext without difficulty, amb without assistance. Appears in no distress. STO Tate RN [facility] 2023-02-23 12:58:00 [facility] Emergency Department Note Patient Name: Ted Cade Date of : 1960 62 year old female Treatment Room: [place] [address]/[id number] Primary Care Physician: Chely Valdez Patient Escorted by: Self [9] Mode of Arrival: Personal means [1] EMS Treatment Prior to ED Arrival: Travel and Exposure Screening: Symptoms Does patient have any of these symptoms?: (not recorded) Exposure Screening Has patient had contact with someone with a communicable disease in the last month?: (not recorded) Diseases exposed to:: (not recorded) Is Patient ?: (not recorded) Exposure Date: (not recorded) Chief Complaint: Chief Complaint Patient presents with Back Pain History of Present Illness: HPI 62yo WF present today with upper back pain on left side by shoulder blade that radiates down left arm sometimes. She states it started yesterday and seems to be worse in some positions. It comes and goes. Denies trauma or heavy lifting. No N/v/d or sob or chest pain. Has not taken any medications for it.Pain is not there currently and does not start again with palpation. Past Medical History/Immunizations: Past Medical History: Diagnosis Date Allergic rhinitis 06/09/2016 Colon polyps Migraines Overactive bladder Postmenopausal HRT (hormone replacement therapy) 11/06/2015 Allergies: Allergies Allergen Reactions Codeine Nausea and/or Vomiting, Dizziness and Other - See comments Past Social History: Tobacco Use Never smoked or used smokeless tobacco. Alcohol Use Yes; 28.0 standard drinks of alcohol per week; 28 Standard drinks or equivalent. Drug Use No. Past Surgical History: Past Surgical History: Procedure Laterality Date COLONOSCOPY N/A 07/08/2022 Surgeon: Ev Lowry MD; [facility]: [facility] LAPAROSCOPIC BLADDER SUSPENSION TONSILLECTOMY Review of Systems: Review of Systems Constitutional: Negative for activity change, diaphoresis, fatigue, fever and weight gain. HENT: Negative for congestion, ear pain, rhinorrhea, sore throat, tinnitus and trouble swallowing. Eyes: Negative for discharge and visual disturbance. Respiratory: Negative for cough and chest tightness. Breasts: Negative for pain. Cardiovascular: Negative for chest pain and palpitations. Gastrointestinal: Negative for abdominal pain, nausea and vomiting. Genitourinary: Negative for dysuria, hematuria and difficulty urinating. Musculoskeletal: Positive for back pain. Negative for joint swelling. Skin: Negative for rash and wound. Neurological: Negative for dizziness and headaches. Psychiatric/Behavioral: Negative for agitation and confusion. The patient is not nervous/anxious. Hematological: Does not bruise/bleed easily. Endocrine: Negative for weight gain. Physical Exam: ED Triage Vitals [02/23/23 1307] Weight 72.1 kg (159 lb) Actual or estimated Estimated by patient/family report Height 1.626 m (5' 4") BP 131/77 Pulse 82 Resp 16 Temp 37.1 ?C (98.8 ?F) Temp source Oral SpO2 100 % Measured on Room air Physical Exam Vitals reviewed. Constitutional: Appearance: She is well-developed. HENT: Head: Normocephalic and atraumatic. Eyes: Conjunctiva/sclera: Conjunctivae normal. Cardiovascular: Rate and Rhythm: Normal rate and regular rhythm. Heart sounds: Normal heart sounds. No murmur heard. Pulmonary: Effort: Pulmonary effort is normal. Breath sounds: Normal breath sounds. No stridor. Abdominal: General: Bowel sounds are normal. Palpations: Abdomen is soft. Tenderness: There is no abdominal tenderness. Musculoskeletal: General: No deformity or signs of injury. Normal range of motion. Cervical back: Neck supple. Comments: Full ROM and pain not currently present or elicited with palpation Skin: General: Skin is warm and dry. Capillary Refill: Capillary refill takes less than 2 seconds. Neurological: Mental Status: She is alert and oriented to person, place, and time. Cranial Nerves: No cranial nerve deficit. Psychiatric: Behavior: Behavior normal. Radiology: No orders to display Lab Results: Lab Results - No data to display EKG: If EKG completed, see Procedure Note. Orders and Treatments: No orders of the defined types were placed in this encounter. Orders Placed This Encounter Medications methocarbamoL (ROBAXIN) tablet 1,000 mg First Provider Eval: ED Events Date/Time Event User Comments 02/23/23 1323 Medical Screening Begins TANISHA RHODES MD -- 02/23/23 1323 First Provider Evaluation TANISHA RHODES MD -- ED COURSE Diagnosis/Impression as of 02/23/23 1351 Acute left-sided thoracic back pain Procedures: Procedures MDM: Medical Decision Making EKG is reassuring Suspected muscle pain vs pinched nerve Robaxin given Discharged with muscle relaxants Problems Addressed: Acute left-sided thoracic back pain: acute illness or injury with systemic symptoms Amount and/or Complexity of Data Reviewed ECG/medicine tests: ordered. Risk OTC drugs. Prescription drug management. Flowsheet Documentation: Scoring Tools: No data recorded Disposition/Condition: ED Disposition None Discharge Medications: Patient's Medications START taking these medications No medications on file CONTINUE taking these medications which have NOT CHANGED ALLERGY RELIEF, CETIRIZINE, 10 MG TABLET Take 1 tablet by mouth once daily CLOBETASOL 0.05 % OINTMENT Apply 1 Applicator to area(s) as needed. FLUTICASONE PROPIONATE 50 MCG/ACTUATION NASAL SPRAY Use 2 spray(s) in each nostril once daily OXYBUTYNIN 10 MG 24 HR TABLET Take 1 tablet by mouth in the morning. SEMAGLUTIDE, WEIGHT LOSS, (WEGOVY) 0.25 MG/0.5 ML PNIJ SC INJECTION inject 0.25 mg under the skin weekly. SUMATRIPTAN 100 MG TABLET TAKE ONE TABLET BY MOUTH NEEDED FOR MIGraine, Max 1 dose per 24 hrs START taking Modified Medications as Prescribed No medications on file STOP taking these medications No medications on file Follow-up: Electronically signed by: Tanisha Rhodes DO 02/23/23 [id number] [facility]
[2024-07-03 16:11] LABS: Absolute Basophils 0.1 K/uL (0-0.5); Absolute Eosinophils 0.2 K/uL (0-0.5); Absolute Lymphocytes (CBC) 2.9 K/uL (0.7-4.9); Absolute Monocytes 0.4 K/uL (0.1-1.3); Absolute Neutrophil 4.8 K/uL (1.8-8.0); Basophils % 1.2 % (0-1.3); Eosinophils % 2.2 % (0-4.4); Hematocrit 37.4 % (36.0-45.0); Hemoglobin 12.7 g/dL (12.0-15.0); Lymphocytes % 34.8 % (15.3-44.8); MCH 31.1 pg (27.0-35.0); MCHC 34.1 g/dL (32.0-36.0); MCV 91.2 fL (80-100); MPV 9.5 fL (7.6-11.3); Monocytes % 5.2 % (3.3-12.3); Neutrophils % 56.6 % (41.7-73.7); Nucleated Red Blood Cells % 0.1 % (0-0); Platelets 215 thou/uL (152-406); Red Cell Distribution Width 12.3 % (12.1-15.2)
[2024-07-03 16:25] LABS: PT Prothrombin Time 10.9 SECONDS (10-13.0); Protime INR 0.95
[2024-07-03 16:31] LABS: ALT/SGPT 30 U/L (13-56); AST/SGOT 19 U/L (15-37); Albumin 3.5 g/dL (3.4-5.0); Albumin/Globulin Ratio 1.2 (1.1-1.8); Alkaline Phosphatase 95 U/L (45-117); Anion Gap 8.8 mEq/L (5.0-15.0); BUN Blood Urea Nitrogen 9 mg/dL (7-18); Bicarbonate 26 mEq/L (21-32); Bilirubin Total 0.4 mg/dL (0.2-1.0); Glomerular Filtration Rate 91 ml/min (=/>90); Glucose Level 101 mg/dL (74-106); Lipase 23 U/L (13-75); Magnesium 2.1 mg/dL (1.6-2.4); NT PRO-BNP 61 pg/mL (<125); Potassium 3.8 mEq/L (3.5-5.1); Protein, Total 6.5 g/dL (6.4-8.2); Sodium Level 140 mEq/L (136-145); Troponin High Sensitivity 9.9 pg/mL (<58.9)
[2024-07-03 16:32] LABS: Bilirubin Direct < 0.2 mg/dL (0-0.2); Bilirubin Indirect, Calculated 0.2 mg/dL (0.2-0.8)
--- NOTE | 2024-07-03 16:55 | RAD REPORT ---
Procedure: Chest Single View HISTORY: Chest pain COMPARISON: none FINDINGS: The lungs appear clear of acute infiltrate. No significant pleural effusion noted. The heart is normal size. IMPRESSION: No acute abnormality is displayed.
--- NOTE | 2024-07-03 17:47 | ER ---
Nurse's Notes [facility] Name: Yovana Cade Age: 63 yrs Sex: Female : 1960 Arrival Date: 07/03/2024 Time: 14:35 Bed 16 Private MD: Diagnosis: Chest pain, resolved Presentation: 07/03 14:51 Chief complaint: Midsternal chest pain that radiates to back x 2 hours. Coronavirus hb screen: At this time, the client does not indicate any symptoms associated with coronavirus-19. Ebola Screen: No symptoms or risks identified at this time. Initial Sepsis Screen: Does the patient meet any 2 criteria? No. Patient's initial sepsis screen is negative. Does the patient have a suspected source of infection? No. Patient's initial sepsis screen is negative. Risk Assessment: Do you want to hurt yourself or someone else? Patient reports no desire to harm self or others. Onset of symptoms was July 03, 2024. 14:51 Method Of Arrival: Ambulatory hb 14:51 Acuity: TAWANDA 3 hb Historical: - Allergies: 14:52 Codeine; hb - Home Meds: 14:52 Oxybutynin Chloride Oral [Active]; hb - PMHx: 14:52 Urinary Incontinence; hb - PSHx: 14:52 Tonsillectomy; Hysterectomy; hb - Immunization history:: Adult Immunizations unknown. - Infectious Disease History:: Denies. - Social history:: Smoking status: unknown. Screenin:05 [facility] ED Fall Risk Assessment (Adult) History of falling in the last 3 months, cm10 including since admission No falls in past 3 months (0 pts) Confusion or Disorientation No (0 pts) Intoxicated or Sedated No (0 pts) Impaired Gait No (0 pts) Mobility Assist Device Used No (0 pt) Altered Elimination No (0 pt) Score/Fall Risk Level 0 - 2 = Low Risk Oriented to surroundings, Maintained a safe environment, Hourly rounding (assess needs \T\ fall precautionary measures) done. Abuse screen: Denies threats or abuse. Denies injuries from another. Nutritional screening: No deficits noted. Tuberculosis screening: No symptoms or risk factors identified. Assessment: 15:31 Reassessment: Patient and/or family updated on plan of care and expected duration. Pain ll1 level reassessed. 16:06 General: Appears in no apparent distress. comfortable, Behavior is calm, cooperative. cm10 Pain: Complains of pain in chest Pain radiates to back Pain currently is 6 out of 10 on a pain scale. Quality of pain is described as Tightness Pain began 3 hours ago. Neuro: No deficits noted. Level of Consciousness is awake, alert, obeys commands, Oriented to person, place, time, situation, Appropriate for age. Cardiovascular: Heart tones present Patient's skin is warm and dry. Rhythm is sinus bradycardia Chest pain is described as Pain is 6 out of 10 on a pain scale. quality is Tightness radiates back began suddenly. Respiratory: No deficits noted. Airway is patent Respiratory effort is even, unlabored, Respiratory pattern is regular, symmetrical, Breath sounds are clear bilaterally. 17:20 Reassessment: Patient appears in no apparent distress at this time. No changes from cm10 previously documented assessment. Patient and/or family updated on plan of care and expected duration. Pain level reassessed. Patient is alert, oriented x 3, equal unlabored respirations, skin warm/dry/pink. Vital Signs: 14:51 BP 148 / 88; Pulse 78; Resp 16; Temp 98.4; Pulse Ox 100% on R/A; Weight 76.66 kg; hb Height 5 ft. 4 in. ; Pain 6/10; 16:00 BP 120 / 71; Pulse 49; Resp 14; Pulse Ox 98% on R/A; cm10 16:30 BP 119 / 79; Pulse 50; Resp 15; Pulse Ox 99% on R/A; cm10 17:00 BP 122 / 73; Pulse 49; Resp 14; Pulse Ox 97% on R/A; cm10 17:30 BP 156 / 87; Pulse 79; Resp 15; Pulse Ox 99% on R/A; cm10 18:00 BP 129 / 74; Pulse 53; Resp 18; Pulse Ox 98% on R/A; cm10 14:51 Body Mass Index 29.01 (76.66 kg, 162.56 cm) hb 14:51 Pain Scale: Adult hb ED Course: 14:38 Patient arrived in ED. im 14:40 Ying Sumner MD is Attending Physician. sp3 14:48 EKG done, by ED staff, reviewed by Ying Sumner MD. hb 14:52 Triage completed. hb 15:24 Mary Kate Stapleton, RN is Primary Nurse. cm10 15:31 Arm band placed on Patient placed in an exam room, on a stretcher. ll1 15:42 XRAY Chest (1 view) In Process Unspecified. EDMS 16:05 Basic Metabolic Panel Sent. cm10 16:05 CBC with Diff Sent. cm10 16:05 LFT's Sent. cm10 16:05 Magnesium Sent. cm10 16:05 NT PRO-BNP Sent. cm10 16:05 PT-INR Sent. cm10 16:05 Troponin HS Sent. cm10 16:05 Initial lab(s) drawn, by vt, sent to lab. Inserted saline lock: 20 gauge in left cm10 antecubital area, using aseptic technique. Blood collected. Flushed with 10 mL NS. Patient maintains SpO2 saturation greater than 95% on room air. 16:05 Patient has correct armband on for positive identification. Bed in low position. Call cm10 light in reach. Side rails up X 1. Client placed on continuous cardiac and pulse oximetry monitoring. NIBP monitoring applied. quality assurance monitor chassis on. 17:20 Troponin High Sensitivity Sent. cm10 18:25 No provider procedures requiring assistance completed. IV discontinued, intact, cm10 bleeding controlled, No redness/swelling at site. Pressure dressing applied. 18:25 Provided Education on: Follow-up . cm10 Administered Medications: No medications were administered Medication: 16:05 VIS not applicable for this client. cm10 Outcome: 17:47 Discharge ordered by MD. guerra 18:25 Discharged to home ambulatory, cm10 18:25 Condition: good 18:25 Discharge instructions given to patient, Instructed on discharge instructions, follow up and referral plans. Demonstrated understanding of instructions, follow-up care, 18:26 Patient left the ED. cm10 Signatures: Dispatcher [employer] EDMT Patricia Cruz RN RN hb Lewis, Lynsay, RN RN ll1 Ying Sumner MD MD sp3 Thu Reyes Clarissa, RN RN cm10 Corrections: (The following items were deleted from the chart) 14:53 14:52 Allergies: No Known Allergies; hb hb 14:53 14:52 Home Meds: None; hb hb
--- NOTE | 2024-07-03 17:47 | EDPHYS ---
Physician Documentation [facility] Name: Yovana Cade Age: 63 yrs Sex: Female : 1960 Arrival Date: 07/03/2024 Time: 14:35 Bed 16 Private MD: ED Physician Ying Sumner HPI: 07/03 15:06 This 63 yrs old Female presents to ER via Ambulatory with complaints of Chest Pain, sp3 Palpitations, Numbness Of Arm. 15:06 63-year-old female with history of urinary incontinence and potential hypertension sp3 currently being evaluated by her PCP presents to the ED with chief complaint chest pain that started approximately 2 hours prior to arrival. Pain consist of substernal chest pain rating to left shoulder and left arm. 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 She has had negative cardiac stress test and cardiac workup less than 6 months ago when she presented to [facility] ER for chest pain symptoms and was evaluated and then followed up with Dr. Bey in [place]. Patient denies any headache, fever, shortness of breath, abdominal pain, back pain, prolonged immobilization, recent significant travel, known sick contacts, or any other signs or symptoms on ROS at this time.. Historical: - Allergies: 14:52 Codeine; hb - Home Meds: 14:52 Oxybutynin Chloride Oral [Active]; hb - PMHx: 14:52 Urinary Incontinence; hb - PSHx: 14:52 Tonsillectomy; Hysterectomy; hb - Immunization history:: Adult Immunizations unknown. - Infectious Disease History:: Denies. - Social history:: Smoking status: unknown. ROS: 15:08 Constitutional: Negative for fever, chills, and weight loss, Eyes: Negative for injury, sp3 pain, redness, and discharge, ENT: Negative for injury, pain, and discharge, Neck: Negative for injury, pain, and swelling, Respiratory: Negative for shortness of breath, cough, wheezing, and pleuritic chest pain, Abdomen/GI: Negative for abdominal pain, nausea, vomiting, diarrhea, and constipation, Back: Negative for injury and pain, MS/Extremity: Negative for injury and deformity, Skin: Negative for injury, rash, and discoloration, Neuro: Negative for headache, weakness, numbness, tingling, and seizure, Psych: Negative for depression, anxiety, suicide ideation, homicidal ideation, and hallucinations, Allergy/Immunology: Negative for hives, rash, and allergies, Endocrine: Negative for neck swelling, polydipsia, polyuria, polyphagia, and marked weight changes, 15:08 All other systems are negative, Exam: 15:08 Constitutional: This is a well developed, well nourished patient who is awake, alert, sp3 and in no acute distress. Head/Face: Normocephalic, atraumatic. Eyes: Pupils equal round and reactive to light, extra-ocular motions intact. Lids and lashes normal. Conjunctiva and sclera are non-icteric and not injected. Cornea within normal limits. Periorbital areas with no swelling, redness, or edema. Neck: Trachea midline, no thyromegaly or masses palpated, and no cervical lymphadenopathy. Supple, full range of motion without nuchal rigidity, or vertebral point tenderness. No Meningismus. Chest/axilla: Normal chest wall appearance and motion. Nontender with no deformity. No lesions are appreciated. Cardiovascular: Regular rate and rhythm with a normal S1 and S2. No gallops, murmurs, or rubs. Normal PMI, no JVD. No pulse deficits. Respiratory: Lungs have equal breath sounds bilaterally, clear to auscultation and percussion. No rales, rhonchi or wheezes noted. No increased work of breathing, no retractions or nasal flaring. Abdomen/GI: Soft, non-tender, with normal bowel sounds. No distension or tympany. No guarding or rebound. No evidence of tenderness throughout. Back: No spinal tenderness. No costovertebral tenderness. Full range of motion. Skin: Warm, dry with normal turgor. Normal color with no rashes, no lesions, and no evidence of cellulitis. MS/ Extremity: Pulses equal, no cyanosis. Neurovascular intact. Full, normal range of motion. Neuro: Awake and alert, GCS 15, oriented to person, place, time, and situation. Cranial nerves II-XII grossly intact. Motor strength 5/5 in all extremities. Sensory grossly intact. Cerebellar exam normal. Normal gait. Psych: Awake, alert, with orientation to person, place and time. Behavior, mood, and affect are within normal limits. 15:08 ECG was reviewed by the Attending Physician. EKG demonstrates normal sinus rhythm at 63 bpm with normal intervals, normal QRS, leftward axis, sinus arrhythmia with PACs and nonspecific diffuse ST/T changes without evidence of acute ischemia. Vital Signs: 14:51 BP 148 / 88; Pulse 78; Resp 16; Temp 98.4; Pulse Ox 100% on R/A; Weight 76.66 kg; hb Height 5 ft. 4 in. ; Pain 6/10; 16:00 BP 120 / 71; Pulse 49; Resp 14; Pulse Ox 98% on R/A; cm10 16:30 BP 119 / 79; Pulse 50; Resp 15; Pulse Ox 99% on R/A; cm10 17:00 BP 122 / 73; Pulse 49; Resp 14; Pulse Ox 97% on R/A; cm10 17:30 BP 156 / 87; Pulse 79; Resp 15; Pulse Ox 99% on R/A; cm10 18:00 BP 129 / 74; Pulse 53; Resp 18; Pulse Ox 98% on R/A; cm10 14:51 Body Mass Index 29.01 (76.66 kg, 162.56 cm) hb 14:51 Pain Scale: Adult hb MDM: 14:54 Medical Screening Exam initiated sp3 15:09 Data reviewed: vital signs, nurses notes, lab test result(s), EKG, radiologic studies. sp3 ED course: 63-year-old female with recurrent chest pain after working. Patient denies any significant ongoing pain however it is still "barely present". Differential diagnosis includes acute coronary syndrome, musculoskeletal pain, pleurisy, among others. I am not highly suspicious of PE, TAD, GERD, sepsis, shock or any other critical process at this time.. 17:24 ED course: Initial workup negative. Patient is not having any pain or symptoms sp3 currently. If second troponin negative we will safely discharge home to cardiology follow-up.. 07/03 14:54 Order name: Basic Metabolic Panel; Complete Time: 16:33 sp3 07/03 14:54 Order name: CBC with Diff; Complete Time: 16:33 sp3 07/03 14:54 Order name: LFT's; Complete Time: 16:33 sp3 07/03 14:54 Order name: Magnesium; Complete Time: 16:33 sp3 07/03 14:54 Order name: NT PRO-BNP; Complete Time: 16:33 3 07/03 14:54 Order name: PT-INR; Complete Time: 16:33 3 07/03 14:54 Order name: Troponin HS; Complete Time: 16:33 3 07/03 14:54 Order name: Lipase; Complete Time: 16:33 3 07/03 16:59 Order name: Troponin High Sensitivity; Complete Time: 17:46 3 07/03 14:54 Order name: XRAY Chest (1 view); Complete Time: 16:58 3 07/03 14:54 Order name: Cardiac monitoring; Complete Time: 15:40 3 07/03 14:54 Order name: EKG - Nurse/Tech; Complete Time: 15:40 [facility] 07/03 14:54 Order name: IV Saline Lock; Complete Time: 16:05 3 07/03 14:54 Order name: Labs collected and sent; Complete Time: 16:05 3 07/03 14:54 Order name: O2 Per Protocol; Complete Time: 15:40 3 07/03 14:54 Order name: O2 Sat Monitoring; Complete Time: 15:40 sp3 Administered Medications: No medications were administered Disposition Summary: 07/03/24 17:47 Discharge Ordered Notes: Location: Home sp3 Condition: Stable sp3 Diagnosis - Chest pain, resolved sp3 Followup: sp3 - With: Private Physician - When: Upon discharge from the Emergency Department - Reason: Continuance of care Discharge Instructions: - Discharge Summary Sheet sp3 - Nonspecific Chest Pain, Adult sp3 Forms: - Medication Reconciliation Form sp3 - Antibiotic Education sp3 - Prescription Opioid Use sp3 - Patient Portal Instructions sp3 - Leadership Thank You Letter sp3 Signatures: Dispatcher [employer] EDMS Patricia Cruz RN RN hb Ying Sumner MD MD sp3 Mary Kate Stapleton RN RN cm10 Corrections: (The following items were deleted from the chart) 14:53 14:52 Allergies: No Known Allergies; hb hb 14:53 14:52 Home Meds: None; hb hb 14:54 14:54 BASIC METABOLIC PANEL+C.LAB.BRZ ordered. EDMS EDMS 14:54 14:54 CBC+H.LAB.BRZ ordered. EDMS EDMS 14:54 14:54 HEPATIC FUNCTION+C.LAB.BRZ ordered. EDMS EDMS 14:54 14:54 MAGNESIUM+C.LAB.BRZ ordered. EDMS EDMS 14:54 14:54 PROBNP+C.LAB.BRZ ordered. EDMS EDMS 14:54 14:54 PROTIME (+INR)+COAG.LAB.BRZ ordered. EDMS EDMS 14:54 14:54 Troponin High Sensitivity+C.LAB.BRZ ordered. EDMS EDMS 14:54 14:54 LIPASE+C.LAB.BRZ ordered. EDMS EDMS 14:54 14:54 Chest Single View+RAD.RAD.BRZ ordered. EDMS EDMS
[2024-07-03 19:13] VITALS: TEMP 98.4
[2024-07-03 19:21] VITALS: BP 129/74; O2SAT 98
--- NOTE | 2024-07-05 12:25 | EKG ---
Test Date: 2024-07-03 Test Time: 14:48:56 [employer]: HB MEASUREMENT RESULTS: Intervals: Rate: 63 [place]: 174 QRSD: 84 QT: 420 QTc: 429 [place]: P: 46 [place]: 174 QRS: -29 T: 13 INTERPRETIVE STATEMENTS: Sinus rhythm with premature atrial complexes Anterolateral infarct, age undetermined Abnormal ECG Compared to ECG 11/01/2006 10:28:58 Atrial premature complex(es) now present Myocardial infarct finding now present Sinus bradycardia no longer present Left ventricular hypertrophy no longer present Electronically Signed On 07-05-24 12:21:43 CDT by Teo Jorgensen
== END 2024-07-03 18:26 | disposition home or self-care (01) ==
LOC: ER 14:35
DX: R07.9 Chest pain, unspecified (principal); R00.2 Palpitations; R20.0 Anesthesia of skin
CPT/HCPCS: 36415; 71045; 80048; 80076; 83690; 83735; 83880; 84484; 85025; 85610; 93005; 99284